=== PATIENT | female | born 1985 | race Caucasian/White ===

== ENCOUNTER → 2017-07-13 14:56 | Outpatient (REF) | payer OTHER, SELFPAY ==
[2017-07-13 17:47] LABS: Basophils # 0.1 K/mm3 (0-0.2); Basophils % 0.9 % (0.1-2.0); Eosinophils # 0.2 K/mm3 (0.0-0.4); Eosinophils % 1.6 % (0.1-12.0); Hematocrit 42.6 % (37.0-47.0); Hemoglobin 14.2 g/dL (12.2-16.2); Lymphocytes # 2.6 K/mm3 (0.7-4.5); Lymphocytes % 28.2 K/mm3 (10-50); Mean Corpuscular HGB Conc 33.3 g/dL (31.8-35.4); Mean Corpuscular Volume 90.1 fl (81-99); Mean Platelet Volume 10.5 fl (7.4-10.4); Monocytes # 0.4 K/mm3 (0.1-1.0); Monocytes % 4.7 % (1.7-9.3); Neutrophils % 64.6 % (37.0-80.0); Platelet Count 212 K/mm3 (142-424); Red Blood Count 4.73 M/mm3 (4.20-5.40); Red Cell Distribution Width 12.5 % (11.5-17.5); White Blood Count 9.3 K/mm3 (4.8-10.8)
[2017-07-13 18:31] LABS: HCG Qualitative, Serum Negative (Negative)
[2017-07-13 19:00] LABS: Alanine Aminotransferase 28 U/L (12-78); Albumin Level 4.1 gm/dL (3.4-5.0); Albumin/Globulin Ratio 1.3 (1.1-1.8); Alkaline Phosphatase 69 U/L (46-116); Anion Gap 14.9 mEq/L (5-15); Aspartate Amino Transferase 17 U/L (15-37); Bilirubin,Total 0.3 mg/dL (0.2-1.0); Blood Urea Nitrogen 10 mg/dL (7-18); Calcium 9.1 mg/dL (8.5-10.1); Carbon Dioxide 24 mmol/L (21.0-32.0); Chloride 107 mmol/L (98-107); Cholesterol 186 mg/dL (140-200); Creatinine,Serum 0.68 mg/dL (0.55-1.02); Estimated Glomerular Filt Rate 100 ml/min (>60); Free T4 (Free Thyroxine) 0.97 ng/dl (0.76-1.46); GFR (African American) 121 ML/MIN (>60); Globulin 3.1 gm/dl (1.3-3.2); Glucose 75 mg/dL (74-106); HDL Cholesterol 31 mg/dL (29-89); LDL Cholesterol 115 mg/dL (0-130); Potassium 3.9 mmoL/L (3.5-5.1); Sodium 142 mmol/L (136-145); Thyroid Stimulating Hormone 2.21 uIU/ml (0.358-3.740); Total Protein,Serum 7.2 gm/dL (6.4-8.2); Triglycerides 202 mg/dL (30-200); VLDL Cholesterol 40 mg/dL (0-40)
[2017-07-15 08:59] LABS: Vitamin D 25 Hydroxy 19.7 ng/mL (30.0-100.0)
== END ==
LOC: LAB 14:56
PROVIDERS: Visit Provider Emergency Medicine
DX: I10 Essential (primary) hypertension (principal); R53.83 Other fatigue
CPT/HCPCS: 80053; 80061; 82652; 84439; 84443; 84703; 85025

== ENCOUNTER → 2019-04-14 10:36 | Outpatient (CLI) | payer OTHER, SELFPAY ==
--- NOTE | 2019-04-14 10:40 | XR_ITS ---
PROCEDURE: XR ELBOW RT MIN 3V CLINICAL INDICATION: elbow pain COMPARISON: No exams were available for comparison FINDINGS: No fracture or dislocation. No lytic or blastic change. There is normal mineralization. The joint spaces are well-preserved. No significant degenerative/arthritic changes. No erosive changes evident. Other findings:None. IMPRESSION: Negative right elbow Dictated by: Mateo Bullard MD 04/14/2019 11:09 Electronically signed by Mateo Bullard MD in [place] 04/14/2019 11:09
== END ==
PROVIDERS: PCP Emergency Medicine; Visit Provider Nurse Practitioner Family
DX: M25.521 Pain in right elbow (principal)
CPT/HCPCS: 73080

== ENCOUNTER → 2020-05-08 08:49 | Outpatient (CLI) | payer BC, SELFPAY ==
[2020-05-08 09:04] LABS: Basophils # 0.1 K/mm3 (0-0.2); Basophils % 1.1 % (0.1-2.0); Eosinophils # 0.4 K/mm3 (0.0-0.4); Eosinophils % 3.2 % (0.1-12.0); Hematocrit 42.6 % (37.0-47.0); Hemoglobin 14.3 g/dL (12.2-16.2); Lymphocytes # 3.2 K/mm3 (0.7-4.5); Lymphocytes % 28.7 % (10-50); Mean Corpuscular HGB Conc 33.5 g/dL (31.8-35.4); Mean Corpuscular Hemoglobin 31.4 pg (27.0-31.2); Mean Corpuscular Volume 93.6 fl (81-99); Mean Platelet Volume 11.1 fl (7.4-10.4); Monocytes # 0.7 K/mm3 (0.1-1.0); Neutrophils # 6.8 K/mm3 (1.8-7.8); Platelet Count 279 K/mm3 (142-424); Red Blood Count 4.56 M/mm3 (4.20-5.40); Red Cell Distribution Width 13.2 % (11.5-17.5); White Blood Count 11.2 K/mm3 (4.8-10.8)
[2020-05-08 09:29] LABS: Alanine Aminotransferase 20 U/L (12-78); Albumin Level 4.7 g/dl (3.5-5.0); Albumin/Globulin Ratio 1.7 (1.1-1.8); Alkaline Phosphatase 68 U/L (38-126); Anion Gap 14.2 mEq/L (5-15); Aspartate Amino Transferase 26 U/L (14-36); Bilirubin,Total 0.2 mg/dl (0.2-1.3); Blood Urea Nitrogen 15 mg/dl (7-17); Calcium 9.9 mg/dl (8.4-10.2); Carbon Dioxide 23 mmol/L (22.0-30.0); Chloride 104 mmol/L (98-107); Chol/HDL Ratio 7.7 (1-3.5); Cholesterol 263 mg/dl (140-200); Estimated Glomerular Filt Rate 95 ml/min (>60); GFR (African American) 115 ML/MIN (>60); Globulin 2.8 g/dL (1.3-3.2); Glucose 76 mg/dl (74-100); HDL Cholesterol 34 mg/dl (40-60); Potassium 4.2 mmoL/L (3.5-5.1); Sodium 137 mmol/L (136-145); Total Protein,Serum 7.5 g/dl (6.3-8.2)
[2020-05-08 09:48] LABS: T4 (Thyroxine) 9.1 ug/dl (5.53-11.0)
[2020-05-08 10:01] LABS: Thyroid Stimulating Hormone 1.87 uIU/mL (0.465-4.68)
[2020-05-08 10:02] LABS: 25-OH Vitamin D, Total < 12.8 ng/mL (30-100)
[2020-05-08 10:22] LABS: Triglycerides 790 mg/dl (30-150)
== END ==
PROVIDERS: Visit Provider Nurse Practitioner Family
DX: Z00.00 Encounter for general adult medical examination without abnormal findings (principal); I10 Essential (primary) hypertension; E55.9 Vitamin D deficiency, unspecified; Z79.899 Other long term (current) drug therapy
CPT/HCPCS: 80053; 80061; 82306; 84436; 84443; 85025

== ENCOUNTER → 2021-10-14 15:41 | Outpatient (CLI) | payer OTHER, SELFPAY ==
[2021-10-14 17:19] LABS: HCG,Quantitative 4745 mIU/ml (0-5.42)
== END ==
PROVIDERS: PCP Nurse Practitioner Family; Visit Provider Nurse Practitioner Obstetrics & Gynecology
DX: N92.6 Irregular menstruation, unspecified (principal)
CPT/HCPCS: 36415; 84702

== ENCOUNTER → 2021-11-18 15:32 | Outpatient (CLI) | payer OTHER, SELFPAY ==
[2021-11-18 19:10] LABS: Basophils # 0.1 K/mm3 (0-0.2); Basophils % 0.9 % (0.1-2.0); Eosinophils # 0.2 K/mm3 (0.0-0.4); Eosinophils % 1.5 % (0.1-12.0); Hematocrit 36.5 % (37.0-47.0); Hemoglobin 12.2 g/dL (12.2-16.2); Lymphocytes # 3.2 K/mm3 (0.7-4.5); Lymphocytes % 22.9 % (10-50); Mean Corpuscular HGB Conc 33.5 g/dL (31.8-35.4); Mean Corpuscular Volume 95.5 fl (81-99); Monocytes # 0.7 K/mm3 (0.1-1.0); Monocytes % 5.3 % (1.7-9.3); Neutrophils # 9.7 K/mm3 (1.8-7.8); Neutrophils % 69.4 % (37.0-80.0); Platelet Count 258 K/mm3 (142-424); Red Blood Count 3.82 M/mm3 (4.20-5.40); Red Cell Distribution Width 13.1 % (11.5-17.5); White Blood Count 13.9 K/mm3 (4.8-10.8)
[2021-11-20 07:12] LABS: HIV Screen 4th Generation wRfx Non Reactive (Non Reactive)
[2021-11-20 08:19] LABS: Hepatitis B Surface Antigen Negative (Negative); Hepatitis C Antibody <0.1 s/co ratio (0.0-0.9)
[2021-11-20 11:20] LABS: Rapid Plasma Reagin Ab Titer Non Reactive (NonRea<1:1)
[2021-11-20 12:52] LABS: Rubella Antibodies, IgG 0.95 index (Immune >0.99)
== END ==
PROVIDERS: PCP Nurse Practitioner Family; Visit Provider Nurse Practitioner Obstetrics & Gynecology
DX: Z34.90 Encounter for supervision of normal pregnancy, unspecified, unspecified trimester (principal)
CPT/HCPCS: 36415; 85025; 86592; 86703; 86762; 86850; 87340; 87380; G0432

== ENCOUNTER → 2021-11-28 14:57 | Outpatient (CLI) | payer OTHER, SELFPAY ==
--- NOTE | 2021-11-28 14:57 | US_ITS ---
FINAL REPORT CLINICAL HISTORY: Confirmation. for dates FINDINGS: Sonographic images of the pelvis were obtained. A single, living intrauterine is noted. A yolk sac is present and measures 0.46 cm. [place] to rump length measures 49 mm which corresponds to 11 weeks 5 days gestation. Heartbeat is identified and measures 170 beats per minute. The right ovary is within normal limits. The left ovary is within normal limits. IMPRESSION: Single, living, intrauterine gestation with 11 weeks 5 days ultrasound age. Reviewed, Interpreted and Dictated by Estevan Rdz III, MD Transcribed by Laura Navarro Authenticated and [facility]
== END ==
PROVIDERS: PCP Nurse Practitioner Family; Visit Provider Nurse Practitioner Obstetrics & Gynecology
DX: Z34.90 Encounter for supervision of normal pregnancy, unspecified, unspecified trimester (principal)
CPT/HCPCS: 76801

== ENCOUNTER → 2022-02-04 13:26 | Outpatient (CLI) | payer OTHER, SELFPAY ==
--- NOTE | 2022-02-04 13:29 | US_ITS ---
FINAL REPORT CLINICAL HISTORY: 20 week anatomy scan FINDINGS: There is a single live intrauterine gestation. Presentation is variable but ended breech. The cervix is closed and measures 4 cm. Placenta is fundal. Cardiac activity is confirmed at 144 bpm. There is soft tissue prominence anteriorly that may represent an accessory lobe of the placenta or possibly a fibroid. The fetus is active. Three-vessel cord with satisfactory umbilical cord insertion. Four-chamber heart is noted. brain and ventricles are unremarkable. Chest and diaphragm are unremarkable. ABDOMEN: Both kidneys are unremarkable. Stomach is unremarkable. SPINE: No anomalies identified. Both arms and legs noted. AMNIOTIC FLUID: Appropriate amount. MEASUREMENTS: ULTRASOUND AGE: 21 weeks 2 days. GESTATION AGE: 21 weeks 3 days. ESTIMATED WEIGHT: 421 g GROWTH PERCENTILE: 43% BPD: 4.9 cm consistent with 21 weeks 0 days. OFD: 6.4 cm consistent with 21 weeks 2 days. HC: 18 cm consistent with 20 weeks 3 days. AC: 16.6 cm consistent with 21 weeks 5 days. FL: 3.6 cm consistent with 21 weeks 4 days. CEREBELLUM: 2.1 cm consistent with 21 weeks 2 days. HUMERUS: 3.4 cm consistent with 21 weeks 4 days. HC/AC: 1.08 CI: 77% FL/BPD: 73 % FL/AC: 22% IMPRESSION: Single living IUP with an ultrasound age of 21 weeks 2 days. Soft tissue prominence anteriorly may represent an accessory lobe of the placenta or possibly a fibroid. Reviewed, Interpreted and Dictated by Estevan Rdz III, MD Transcribed by Octavio Tinajero Authenticated and [facility]
== END ==
PROVIDERS: PCP Nurse Practitioner Family; Visit Provider Nurse Practitioner Obstetrics & Gynecology
DX: Z34.90 Encounter for supervision of normal pregnancy, unspecified, unspecified trimester (principal); Z3A.20 20 weeks gestation of pregnancy
CPT/HCPCS: 76811

== ENCOUNTER → 2022-03-13 08:34 | Outpatient (CLI) | payer OTHER, SELFPAY ==
[2022-03-13 09:13] LABS: Glucose,Fasting 87 mg/dl (74-100)
[2022-03-13 10:33] LABS: Glucose 1 Hour 68 mg/dL (74-100)
== END ==
PROVIDERS: PCP Nurse Practitioner Family; Visit Provider Nurse Practitioner Obstetrics & Gynecology
DX: Z34.90 Encounter for supervision of normal pregnancy, unspecified, unspecified trimester (principal)
CPT/HCPCS: 36415; 82951

== ENCOUNTER → 2022-04-08 14:11 | Outpatient (CLI) | payer OTHER, SELFPAY | PROVIDERS: PCP Nurse Practitioner Family; Visit Provider Nurse Practitioner Obstetrics & Gynecology | DX: Z34.90 Encounter for supervision of normal pregnancy, unspecified, unspecified trimester (principal) | CPT/HCPCS: J2790 ==

== ENCOUNTER 2022-04-24 16:09 | Emergency (ER) | payer OTHER, SELFPAY ==
[2022-04-24 16:45] VITALS: BP 135/81; PULSE 78; RESP 20; TEMP 36.8; O2SAT 99; BMI 39.0
--- NOTE | 2022-04-24 17:07 | EXP.UTC ---
Discharge Plan Disposition Patient Disposition: Home, Self-Care Condition: Good Prescriptions Prescriptions: New amoxicillin [amoxicillin] 500 mg tablet 500 mg PO TID 10 Days Qty: 30 0RF No Action ferrous sulfate 325 mg (65 mg iron) tablet 325 mg PO DAILY 30 Days Qty: 30 6RF labetalol 200 mg tablet 200 mg PO BID Classic 28 mg iron- 800 mcg tablet 1 tab PO DAILY Referrals Follow up/Referrals: Kavon Jacob APRN [Primary Care Provider] - See instructions Activity Restrictions/Add. Instructions Additional Instructions/Restrictions: Drink plenty of fluids. Take tylenol or ibuprofen for pain or fever. Take the medications as directed. Follow up with your regular doctor. GO TO THE ER FOR ANY WORSENING SYMPTOMS Clinical Impressions Clinical Impression: Otitis media, right Instructions Patient Instructions: Middle Ear Infection Discharge ED Provider: Jeronimo Santoyo [facility] General Stated complaint: right ear pain Mode of Arrival: Ambulatory Source of Information: Patient Limitations: No Limitations Time Seen by Provider: 04/24/22 17:07 Description of Symptoms (Recalled from Triage Doc. by RN): right ear closed, no hurting or pain HEENT Symptoms (Recalled from RN notes): Yes Resp Symptoms (Recalled from RN notes): No Skin Symptoms (Recalled from RN notes): No MS Symptoms (Recalled from RN notes): No Functional Status (Recalled from RN notes): n/a History of Present Illness Provider Complaint: She c/o right ear pain and decreased hearing for the past 2 days. She has had a runny nose, but she denies any other symptoms. Related Data Home Medications Medication Instructions Recorded Confirmed labetalol 200 mg tablet 200 mg PO BID High blood pressure 04/24/22 04/24/22 vits no.126-ferrous fum 1 tab PO DAILY . 04/24/22 04/24/22 28 mg iron-folic acid 800 mcg tablet (Classic ) Previous Rx's Medication Instructions Recorded ferrous sulfate 325 mg (65 mg 325 mg PO DAILY 30 days #30 tabs 01/21/22 iron) tablet amoxicillin 500 mg tablet 500 mg PO TID 10 days #30 tabs 04/24/22 Allergies Allergy/AdvReac Type Severity Reaction Status Date / Time No Known Allergies Allergy Verified 04/24/22 17:00 Worker's Comp Is this a Worker's Comp case?: No [facility] Disclaimer: The information contained in this section may have been updated after the patient was seen, as this information can be updated by other users. Medical History Chronic hypertension affecting Maternal obesity affecting , antepartum Smoker Vitamin D deficiency (~07/15/17) Family History Other Alcoholism Asthma Cancer Diabetes Heart attack Hyperlipidemia Hypertension Social History Smoking Status: Current every day smoker tobacco type: cigarettes second hand exposure: Yes alcohol intake: never substance use type: denies use current occupational status: employed Travel in the last 8 weeks: None ROS Obtained: Yes All systems reviewed & no additional complaints except as documented Constitutional Constitutional: Denies chills, Reports fever(s) and Reports poor appetite Eyes Eyes: Denies eye discharge ENT Ears, Nose, Mouth, and Throat: Denies ear discharge, Reports otalgia, Denies hearing loss, Denies sinus pain and Reports sore throat Cardiovascular Cardiovascular: Denies chest pain and Denies dyspnea Respiratory Respiratory: Denies chest congestion, Reports cough and Denies dyspnea Gastrointestinal Gastrointestingal: Denies abdominal pain, diarrhea, nausea or vomiting Musculoskeletal Musculoskeletal: Denies arthralgias Integumentary/Breasts Skin/Breast: Denies rash Physical Exam General General appearance: alert and in no apparent distress Head Head exam: atraumat
[2022-04-24 17:49] VITALS: BP 135/81; PULSE 78; RESP 20; TEMP 36.8; O2SAT 99
== END 2022-04-24 17:48 | disposition home or self-care (01) ==
PROVIDERS: Emergency Provider Nurse Practitioner Family; PCP Nurse Practitioner Family
DX: H66.91 Otitis media, unspecified, right ear (principal); F17.210 Nicotine dependence, cigarettes, uncomplicated
CPT/HCPCS: 99212; 99214; G0463

== ENCOUNTER → 2022-05-19 16:25 | Outpatient (CLI) | payer OTHER, SELFPAY ==
--- NOTE | 2022-05-19 16:26 | US_ITS ---
FINAL REPORT CLINICAL HISTORY: sga s/d ratios and growth performed as well FINDINGS: TRANSABDOMINAL ULTRASOUND There is a single live intrauterine gestation. Presentation is cephalic. The cervix is closed and measures 3 cm. Placenta is posterior grade 1. Cardiac activity is confirmed at 140 bpm. Fetus is active. LAURA: 20.5 cm MEASUREMENTS: ULTRASOUND AGE: 34 weeks 6 days. GESTATION AGE: 36 weeks 2 days. ESTIMATED WEIGHT: 2555 g GROWTH PERCENTILE: 19% LMP percentile HC/AC: 0.99 CI: 75% FL/BPD: 80% FL/AC: 21% S/D: 2.22 BPD: 8.4 cm corresponding with 34 weeks 0 days. OFD: 8.7 cm corresponding with 35 weeks 0 days. HC: 31.2 cm corresponding with 35 weeks 0 days. AC: 31.4 cm corresponding with 35 weeks 3 days. FL: 6.7 cm corresponding with 34 weeks 4 days. BREATHIN/2 MOVEMENT: 2/2 TONE: 2/2 FLUID VOLUME: 2/2 BPP SCORE: 8/8 IMPRESSION: Single living IUP with an ultrasound age of 34 weeks 6 days. BPP SCORE: 8/8 LAURA: 20.5 Reviewed, Interpreted and Dictated by Parker Greenberg MD Transcribed by Laura Navarro Authenticated and [facility]
== END ==
LOC: RAD 16:26
PROVIDERS: PCP Nurse Practitioner Family; Visit Provider Nurse Practitioner Obstetrics & Gynecology
DX: O36.5990 Maternal care for other known or suspected poor fetal growth, unspecified trimester, not applicable or unspecified (principal)
CPT/HCPCS: 76816; 76819; 76820; 86403

== ENCOUNTER → 2022-05-19 17:19 | Outpatient (CLI) | payer OTHER, SELFPAY | PROVIDERS: Visit Provider Nurse Practitioner Obstetrics & Gynecology | DX: Z34.90 Encounter for supervision of normal pregnancy, unspecified, unspecified trimester (principal) ==

== ENCOUNTER 2022-06-09 04:42 | Inpatient (IN) | payer OTHER, SELFPAY ==
[2022-06-09 04:46] VITALS: BMI 39.9
[2022-06-09 05:27] LABS: Coronavirus 19, PCR Not Detected (NotDetected); Influenza A, PCR Not Detected (NotDetected); Influenza B, PCR Not Detected (NotDetected)
[2022-06-09 05:29] LABS: Basophils # 0.1 K/mm3 (0-0.2); Basophils % 0.6 % (0.1-2.0); Eosinophils # 0.2 K/mm3 (0.0-0.4); Eosinophils % 1.6 % (0.1-12.0); Hematocrit 35.2 % (37.0-47.0); Hemoglobin 11.8 g/dL (12.2-16.2); Lymphocytes # 2.6 K/mm3 (0.7-4.5); Lymphocytes % 20.8 % (10-50); Mean Corpuscular HGB Conc 33.6 g/dL (31.8-35.4); Mean Corpuscular Hemoglobin 31.1 pg (27.0-31.2); Mean Corpuscular Volume 92.5 fl (81-99); Mean Platelet Volume 9.8 fl (7.4-10.4); Monocytes # 0.6 K/mm3 (0.1-1.0); Monocytes % 5.2 % (1.7-9.3); Neutrophils # 8.8 K/mm3 (1.8-7.8); Neutrophils % 71.8 % (37.0-80.0); Platelet Count 211 K/mm3 (142-424); Red Cell Distribution Width 13.7 % (11.5-17.5); White Blood Count 12.3 K/mm3 (4.8-10.8)
[2022-06-09 05:35] VITALS: BP 128/86; PULSE 81; RESP 18; TEMP 36.4; O2SAT 99; BMI 39.9
--- NOTE | 2022-06-09 06:59 | HMH.PHAINT1 ---
Pharmacy Intervention Comments: MEDICATION RECONCILIATION COMPLETED ON PATIENT USING EXTERNAL FILL HISTORY FROM PHARMACY. -JENI FOY, CLEMENTED
--- NOTE | 2022-06-09 08:21 | EXP.LABOR.NO ---
Labor Note Subjective: Date: 06/09/22 Time: 08:21 regular contraction Objective: NST:: Reactive Contractions:: every 2-3 minutes Cervical Dilation:: 2-3 Effacement:: 75% Station: -2 Membranes: artificially ruptured Comment:: I ruptured her membranes and there was clear fluid. Fetus: Monitoring?: Yes monitoring type:: External Assessment: Labor progressing?: Yes Cephalopelvic disproportion?: No Plan: Anesthesia for epidural?: Yes Continue to labor down?: Yes Plan for ?: No Continue to monitor?: Yes Start pushing?: No Comment:: I have ruptured her membranes and there is clear fluid. She is iqra well. Her cervix is reasonably thinned out and she is 2 to 3 cm. We will expect vaginal delivery since she has had a previous vaginal delivery.
--- NOTE | 2022-06-09 08:23 | EXP.HP ---
History of Present Illness *Admission Date: 06/09/22 *Reason for visit:: Term previous vaginal delivery *History of present illness: She is a 36-year-old 2 para 1 at 39 weeks gestational age. She has requested induction of labor at term. She has had a previous vaginal delivery. [facility] Disclaimer: The information contained in this section may have been updated after the patient was seen, as this information can be updated by other users. Medical History Chronic hypertension affecting Maternal obesity affecting , antepartum Smoker Vitamin D deficiency (~07/15/17) Family History Diabetes Alcoholism Hyperlipidemia Heart attack Cancer Hypertension Asthma Social History Smoking Status: Former smoker second hand exposure: Yes alcohol intake: never substance use type: denies use current occupational status: employed Travel in the last 8 weeks: None Review of Systems Review of Systems Review of systems:: pertinent systems reviewed and negative unless documented below Meds Home Medications and Allergies Home Medications Medication Instructions Recorded Confirmed Type labetalol 200 mg tablet 200 mg PO BID High blood pressure 04/24/22 06/09/22 History vits no.126-ferrous fum 1 tab PO DAILY Supplement 04/24/22 06/09/22 History 28 mg iron-folic acid 800 mcg tablet (Classic ) ferrous sulfate 325 mg (65 mg 325 mg PO DAILY Supplement 06/09/22 06/09/22 History iron) tablet New Prescriptions to Start Prescriptions: Allergies Allergy/AdvReac Type Severity Reaction Status Date / Time No Known Allergies Allergy Verified 06/08/22 15:56 Exam Data for Last 24 hours Vital signs and Labs for Last 24 Hours: Temp Pulse Resp BP Pulse Ox 97.6 F 81 18 128/86 99 06/09/22 05:35 06/09/22 05:35 06/09/22 05:35 06/09/22 05:35 06/09/22 05:35 Laboratory Results - last 24 hr 06/09/22 05:20: WBC 12.3 H, RBC 3.80 L, Hgb 11.8 L, Hct 35.2 L, MCV 92.5, MCH 31.1, MCHC 33.6, RDW 13.7, Plt Count 211, MPV 9.8, Neut % (Auto) 71.8, Lymph % (Auto) 20.8, [place] % (Auto) 5.2, Eos % (Auto) 1.6, Baso % (Auto) 0.6, Neut # (Auto) 8.8 H, Lymph # (Auto) 2.6, [place] # (Auto) 0.6, Eos # (Auto) 0.2, Baso # (Auto) 0.1 06/09/22 05:20: SARS-CoV-2 (PCR) Not detected, Influenza A Untype (PCR) Not detected, Influenza Type B (PCR) Not detected 06/09/22 05:20: Blood Type O Negative, Antibody Screen Negative I & O for Last 24 hours: Intake & Output 06/06/22 06/07/22 06/08/22 06/09/22 11:59 11:59 11:59 11:59 Weight 247 lb Constitutional Constitutional: no acute distress and obese *Routine HEENT Exam Head: Present normocephalic Eye: Present EOMI and PERRL ENT: Present mucous membranes moist *Routine Neck Exam Neck: Present supple; Absent lymphadenopathy *Routine Respiratory Exam Respiratory: Present CTA bilaterally *Routine Cardiovascular Exam Cardiovascular: Present RRR *Routine Abdominal Exam Abdominal: Present soft and normoactive bowel sounds; Absent tenderness *Routine Rectal Exam Rectal:: deferred *Routine Genitalia Exam Genitalia:: deferred *Routine Extremities Exam Extremities: Absent cyanosis, clubbing or edema *Routine Skin Exam Skin: Present warm; Absent rash *Routine Neurological Exam Neurological: Present alert and oriented X3 Assessment and Plan *Assessment and plan (1) Tobacco smoking affecting : Status: Acute Category: Medical Code(s): O99.330 - Smoking (tobacco) complicating , unspecified trimester (2) Chronic hypertension affecting : Status: Chronic Category: Medical Code(s): O10.919 - Unspecified pre-existing hypertension complicating , unspecified trimester (3) Maternal obesity affecting ,
--- NOTE | 2022-06-09 11:24 | EXP.LABOR.NO ---
Labor Note Subjective: Date: 06/09/22 Time: 11:24 regular contraction Objective: NST:: Reactive Contractions:: every 2-3 minutes Cervical Dilation:: 2-3 Effacement:: 50% Station: -3 Membranes: artificially ruptured Fetus: Monitoring?: Yes monitoring type:: External Assessment: Labor progressing?: No Cephalopelvic disproportion?: No Plan: Anesthesia for epidural?: Yes Continue to labor down?: Yes Plan for ?: No Continue to monitor?: Yes Start pushing?: No Comment:: She really has not progressed much and her blood pressure is slightly elevated. I recommended that she has an epidural. I suspect this may help with her blood pressure. It should also relax her pelvis to allow the baby's head to come down easier. We will make sure that we drain her bladder as well.
--- NOTE | 2022-06-09 11:53 | EXP.ANES.CKL ---
[facility] Disclaimer: The information contained in this section may have been updated after the patient was seen, as this information can be updated by other users. Medical History Chronic hypertension affecting Maternal obesity affecting , antepartum Smoker Vitamin D deficiency (~07/15/17) Family History Diabetes Alcoholism Hyperlipidemia Heart attack Cancer Hypertension Asthma Social History Smoking Status: Former smoker second hand exposure: Yes alcohol intake: never substance use type: denies use current occupational status: employed Travel in the last 8 weeks: None [facility] Anesthesia Checklist Patient Identification Patient Identification: Verbal (Name & ) Structural Data Admitted From: Inpatient Planned Operative Procedure/s: labor epidural Consent for Planned Operative Procedure(s) Verified: Yes Airway Assessment C-Spine Mobility Assessed: Yes TMJ Mobility Assessed: Yes Dentition: Good Dentition Neurological Assessment Level of Consciousness: Awake, Alert and Appropriate Anesthesia Plan Anesthesia Risk discussed: Yes Anesthesia Plan: Verified ASA Class: II Anesthesia Type: Epidural
[2022-06-09 12:09] LABS: Microscopic, Urine URINE MICROSCOPIC (MICROSCOPIC)
[2022-06-09 12:11] LABS: Appearance,Urine CLEAR (Clear); Bilirubin,Urine Negative (Negative); Blood, Urine 2+ (Negative); Color,Urine YELLOW (Yellow); Glucose,Urine (UA) Negative (Negative); Ketones,Urine Negative (Negative); Leukocyte Esterase,Urine Negative (Negative); Nitrate,Urine Negative (Negative); PH,Urine 6.5 (5.0-8.5); Protein,Urine Negative (Negative); Specific Gravity, Urine 1.015 (1.005-1.030); Urobilinogen,Urine 0.2 EU/dl (0.2)
[2022-06-09 12:23] LABS: Barbiturates Screen,Urine Negative ng/ml (<200)
[2022-06-09 12:24] LABS: Amphetamine/Metha Screen,Urine Negative ng/ml (<1000); Benzodiazepines Screen,Urine Negative ng/ml (<200)
[2022-06-09 12:25] LABS: Cannabinoid Screen,Urine Negative ng/ml (<50); Cocaine Screen,Urine Negative ng/ml (<300)
[2022-06-09 12:26] LABS: Bacteria,Urine Trace /lpf; Methadone Screen,Urine Negative ng/ml (<300); Squamous Epithelial Cell,Urine Occasional #/hpf (0-5)
[2022-06-09 12:27] LABS: Opiate Screen,Urine Negative ng/ml (<300); Phencyclidine Screen,Urine Negative ng/ml (<25)
--- NOTE | 2022-06-09 15:41 | EXP.LABOR.NO ---
Labor Note Subjective: Date: 06/09/22 Time: 13:35 regular contraction Objective: NST:: Reactive Contractions:: every 2-3 minutes Cervical Dilation:: 4 Effacement:: 25% Station: -3 Membranes: artificially ruptured Fetus: Monitoring?: Yes monitoring type:: Internal and External Comment:: I inserted an IUPC Assessment: Labor progressing?: Yes Cephalopelvic disproportion?: No Plan: Anesthesia for epidural?: Yes Continue to labor down?: Yes Plan for ?: No Continue to monitor?: Yes Start pushing?: No
--- NOTE | 2022-06-09 15:42 | EXP.LABOR.NO ---
Labor Note Subjective: Date: 06/09/22 Time: 15:42 regular contraction Objective: NST:: Reactive Contractions:: every 2-3 minutes Cervical Dilation:: 4 Effacement:: 50% Station: -3 Membranes: artificially ruptured Fetus: Monitoring?: Yes monitoring type:: Internal and External Assessment: Labor progressing?: No Cephalopelvic disproportion?: No Plan: Anesthesia for epidural?: Yes Continue to labor down?: Yes Plan for ?: No Continue to monitor?: Yes Start pushing?: No Comment:: She really has not progressed much in the last couple of hours but she is having regular contractions. She has had a previous vaginal delivery. We will see how she does over the next few hours. If she does not change her cervix then I suspect she will need a section. There is no evidence of distress.
--- NOTE | 2022-06-09 16:43 | EXP.LABOR.NO ---
Labor Note Subjective: Date: 06/09/22 Time: 16:43 regular contraction Objective: NST:: Reactive Contractions:: every 2-3 minutes Cervical Dilation:: 4-5 Effacement:: 75% Station: -2 Membranes: artificially ruptured Fetus: Monitoring?: Yes monitoring type:: Internal and External Assessment: Labor progressing?: Yes Cephalopelvic disproportion?: No Plan: Anesthesia for epidural?: Yes Continue to labor down?: Yes Plan for ?: No Continue to monitor?: Yes Start pushing?: No Comment:: She seems to be progressing. The cervix is much softer and stretchy. She is a good 4 to 5 cm with some molding of the head. Her care will be taken over by Dr. Carrillo since I am going to be leaving town for the rest of the evening. I am confident that she will have a vaginal delivery.
[2022-06-09 19:15] VITALS: BP 128/67; PULSE 57; RESP 18; TEMP 36.4; O2SAT 99
--- NOTE | 2022-06-09 21:04 | EXP.DN ---
Delivery Note Delivery Date:: 06/09/22 Delivery Time:: 19:53 Anesthesia Type: Epidural Was labor medically induced?: Yes Induction method: per pitocin protocol Infant delivered prior to 39 weeks?: Yes Gender: Female at 1 minute: 8 at 5 minutes: 9 Delivery Procedure:: Spontaneous vaginal delivery of liveborn female infant over intact perineum. Delivery uncomplicated Nuchal cord x 1 reduced on perineum No shoulder dystocia with delivery Infant placed in NOY immediately after delivery, with standard nursing assessment performed Infant Apgars: 8 & 9 Placenta spontaneously expressed and examined; noted to be complete/intact. Vulva, vagina, and cervix inspected; no lacerations noted EBL: 300 cc All sponge/needle/instrument counts correct at conclusion of procedure Placental Delivery Description: Spontaneous
[2022-06-09 22:19] VITALS: BP 149/71; PULSE 79
[2022-06-10 06:54] LABS: Hematocrit 32.1 % (37.0-47.0); Hemoglobin 11.1 g/dL (12.2-16.2)
--- NOTE | 2022-06-10 08:56 | P.PN_ITS ---
Subjective *Date: 06/10/22 *Time: 08:56 Interval history: She is doing very well 1 day from a vaginal delivery. She denies any pain. She is bottlefeeding. Her lochia is normal. Medical Exam Vital signs and Labs for Last 24 Hours: Vital Signs Temp Pulse Resp BP Pulse Ox 06/09/22 22:19 79 149/71 H 06/09/22 19:15 97.5 F L 57 L 18 128/67 99 Laboratory Results - last 24 hr 06/09/22 12:00: Urine Color Yellow, Urine Appearance Clear, Urine pH 6.5, Ur Specific [place] 1.015, Urine Protein Negative, Urine Glucose (UA) Negative, U rine Ketones Negative, Urine Blood 2+, Urine Nitrate Negative, Urine Bilirubin Negative, Urine Urobilinogen 0.2, Ur Leukocyte Esterase Negative, Urine RBC 5- 10, Urine WBC 3-5, Ur Squamous Epith Cells Occasional, Urine Bacteria Trace 06/09/22 12:00: Urine Opiates Screen Negative, Urine Methadone Screen Negative, Ur Barbituates Screen Negative, Ur Phencyclidine Scrn Negative, Ur Amphetamines Screen Negative, U Benzodiazepines Scrn Negative, Urine Cocaine Screen Negative, U Marijuana (THC) Screen Negative 06/10/22 06:30: Hgb 11.1 L, Hct 32.1 L I & O for Labs for Last 24 Hours: Intake & Output 06/07/22 06/08/22 06/09/22 06/10/22 11:59 11:59 11:59 11:59 Weight 247 lb Head: Present atraumatic Neck: Present normal inspection Respiratory: Present normal respiratory effort; Absent accessory muscle use Assessment and Plan *Assessment and plan (1) Advanced maternal age affecting , antepartum: Status: Acute Category: Medical (2) Tobacco smoking affecting : Status: Acute Category: Medical Code(s): O99.330 - Smoking (tobacco) complicating , unspecified trimester (3) Normal delivery: Status: Acute Category: Medical Code(s): O80 - Encounter for full-term uncomplicated delivery (4) Chronic hypertension affecting : Status: Chronic Category: Medical Code(s): O10.919 - Unspecified pre-existing hypertension complicating , unspecified trimester (5) Maternal obesity affecting , antepartum: Status: Chronic Category: Medical Code(s): O99.210 - Obesity complicating , unspecified trimester Plan She continues to do very well. We will plan to send her home tomorrow.
[2022-06-10 09:00] VITALS: BP 135/64; PULSE 75; RESP 18; TEMP 36.6
[2022-06-10 13:40] VITALS: BP 131/66; PULSE 79; RESP 18; TEMP 36.8
[2022-06-11 04:15] VITALS: BP 143/73; PULSE 72; RESP 17; TEMP 36.5; O2SAT 98
--- NOTE | 2022-06-11 09:03 | EXP.DC.SUM ---
General Admission date:: 06/09/22 Discharge date: 06/11/22 HPI HPI HPI: She is a 36-year-old 2 para 1 at 39 weeks gestational age. She has requested induction of labor at term. She has had a previous vaginal delivery. She is known to have chronic hypertension. She is advanced maternal age. She has Rh- blood. She is obese. Hospital Course Hospital Course Hospital Course: She was started on IV oxytocin and had her membranes ruptured. She progressed to full dilation and delivered spontaneously a liveborn female child at 7:53 PM in the evening of June 09, 2022. The baby weighed 6 pounds 6 ounces and had Apgars of 8 at 1 minute and 9 at 5 minutes. She has done well and has remained afebrile throughout hospitalization. She is eating and drinking and ambulating. She is bottlefeeding. She has O Rh- blood and has received RhoGAM. She is rubella nonimmune and will receive MMR. She will be discharged home today to follow-up with me in approximately 2 weeks time. She will continue with her vitamins and iron. She was given the usual instructions with respect to limiting her activity, driving and sexual activity. She would like a bilateral tubal ligation and we will make arrangements for this in about 6 weeks. Exam Data for Last 24 hours Vital signs and Labs for Last 24 Hours: Temp Pulse Resp BP Pulse Ox 97.7 F 72 17 143/73 H 98 06/11/22 04:15 06/11/22 04:15 06/11/22 04:15 06/11/22 04:15 06/11/22 04:15 Laboratory Results - last 24 hr 06/10/22 06:30: Screen Negative, Baby's Rh Status Positive, Rhogam Infusion Rhogam release I & O for Last 24 hours: Intake & Output 06/08/22 06/09/22 06/10/22 06/11/22 11:59 11:59 11:59 11:59 Weight 247 lb Constitutional Constitutional: no acute distress *Routine HEENT Exam Head: Present normocephalic *Routine Neck Exam Neck: Present supple *Routine Respiratory Exam Respiratory: Present normal respiratory effort; Absent accessory muscle use Results Data Completed and Pending Labs on day of discharge: Labs from last 24 hours 06/10/22 06:30 Screen Negative Baby's Rh Status Positive Rhogam Infusion Rhogam release DS: Diagnosis Discharge Diagnosis (1) Advanced maternal age affecting , antepartum: Status: Acute (2) Tobacco smoking affecting : Status: Acute (3) Normal delivery: Status: Acute (4) Chronic hypertension affecting : Status: Chronic (5) Maternal obesity affecting , antepartum: Status: Chronic Meds Home Medications and Allergies Home Medications Medication Instructions Recorded Confirmed Type labetalol 200 mg tablet 200 mg PO BID High blood pressure 04/24/22 06/09/22 History vits no.126-ferrous fum 1 tab PO DAILY Supplement 04/24/22 06/09/22 History 28 mg iron-folic acid 800 mcg tablet (Classic ) ferrous sulfate 325 mg (65 mg 325 mg PO DAILY Supplement 06/09/22 06/09/22 History iron) tablet New Prescriptions to Start Prescriptions: Allergies Allergy/AdvReac Type Severity Reaction Status Date / Time No Known Allergies Allergy Verified 06/08/22 15:56 Discharge Plan Disposition Patient Disposition: Home, Self-Care Follow up Plan Prescriptions/Medication Reconciliation: Continued labetalol 200 mg tablet 200 mg PO BID Classic 28 mg iron- 800 mcg tablet 1 tab PO DAILY ferrous sulfate 325 mg (65 mg iron) tablet 325 mg PO DAILY Problem Reconciliation Problems Reviewed?: Yes Patient Discharge Instructions ACTIVITY: No heavy lifting DIET: continue same diet Additional Instructions: Drink plenty of fluids. Nothing in the vagina for 6 weeks. No strenuous activity or heavy lifting until released by your doctor. No tub baths. Patient Instructions: Depression, Hemorrhage, DI for Labor and Delivery, Vag
== END 2022-06-11 13:55 | disposition home or self-care (01) | DRG 806 ==
PROVIDERS: Obstetrics & Gynecology; Admitting Provider Nurse Practitioner Obstetrics & Gynecology; PCP Nurse Practitioner Family; Visit Provider Nurse Practitioner Obstetrics & Gynecology
DX: O69.81X0 Labor and delivery complicated by cord around neck, without compression, not applicable or unspecified (principal); O10.02 Pre-existing essential hypertension complicating childbirth; Z37.0 Single live birth; Z23 Encounter for immunization; Z3A.39 39 weeks gestation of pregnancy; F17.210 Nicotine dependence, cigarettes, uncomplicated; O99.334 Smoking (tobacco) complicating childbirth
CPT/HCPCS: 59409; 36415; 59025; 80305; 81001; 85014; 85018; 85025; 85461; 86850; C1758; C9803; J2790; U0003; U0005

== ENCOUNTER 2022-08-12 07:02 | Day surgery (SDC) | payer OTHER, SELFPAY ==
[2022-08-12] VITALS (9 sets, daily range): BP systolic 125–145; BP diastolic 75–91; PULSE 57–78; RESP 12–18; TEMP 36.1–36.6; O2SAT 92–98; BMI 35.5
[2022-08-12 07:36] LABS: Basophils # 0.1 K/mm3 (0-0.2); Basophils % 1.6 % (0.1-2.0); Eosinophils # 0.5 K/mm3 (0.0-0.4); Eosinophils % 6.5 % (0.1-12.0); Hematocrit 42.3 % (37.0-47.0); Hemoglobin 13.9 g/dL (12.2-16.2); Lymphocytes # 2.5 K/mm3 (0.7-4.5); Lymphocytes % 34.6 % (10-50); Mean Corpuscular HGB Conc 32.9 g/dL (31.8-35.4); Mean Corpuscular Hemoglobin 28.7 pg (27.0-31.2); Mean Corpuscular Volume 87.1 fl (81-99); Mean Platelet Volume 9.7 fl (7.4-10.4); Monocytes # 0.5 K/mm3 (0.1-1.0); Monocytes % 6.9 % (1.7-9.3); Neutrophils # 3.7 K/mm3 (1.8-7.8); Neutrophils % 50.4 % (37.0-80.0); Platelet Count 244 K/mm3 (142-424); Red Blood Count 4.85 M/mm3 (4.20-5.40); Red Cell Distribution Width 12.9 % (11.5-17.5); White Blood Count 7.4 K/mm3 (4.8-10.8)
[2022-08-12 07:37] LABS: Urine Pregnancy, HCG Qual. Negative (Negative)
[2022-08-12 07:50] LABS: Chloride 104 mmol/L (98-107); Sodium 138 mmol/L (136-145)
[2022-08-12 07:53] LABS: Alanine Aminotransferase 35 U/L (12-78); Albumin Level 4.5 g/dl (3.5-5.0); Albumin/Globulin Ratio 1.7 (1.1-1.8); Alkaline Phosphatase 75 U/L (38-126); Aspartate Amino Transferase 32 U/L (14-36); Bilirubin,Total 0.2 mg/dl (0.2-1.3); Blood Urea Nitrogen 15 mg/dl (7-17); Carbon Dioxide 23 mmol/L (22.0-30.0); Creatinine Clearance Estimated 173 mL/min (50-200); Estimated Glomerular Filt Rate 94 ml/min (>60); GFR (African American) 114 ML/MIN (>60); Globulin 2.7 g/dL (1.3-3.2); Glucose 99 mg/dl (74-100); Total Protein,Serum 7.2 g/dl (6.3-8.2)
--- NOTE | 2022-08-12 07:54 | P.PN_ITS ---
[facility] Disclaimer: The information contained in this section may have been updated after the patient was seen, as this information can be updated by other users. Medical History Hypertension Vitamin D deficiency (~07/15/17) Surgical History No significant past surgical history Family History Other Alcoholism Asthma Cancer Diabetes Heart attack Hyperlipidemia Hypertension Social History Smoking Status: Current every day smoker tobacco type: cigarettes second hand exposure: Yes alcohol intake: never substance use type: denies use current occupational status: employed Travel in the last 8 weeks: None [facility] Anesthesia Checklist Patient Identification Patient Identification: Arm Band and Verbal (Name & ) Structural Data Admitted From: Home Planned Operative Procedure/s: Lap. salpingectomy Consent for Planned Operative Procedure(s) Verified: Yes NPO Status Verified Time NPO: 00:00 Chart Verification Results Verified: HCG Additional verifications Anesthesia Reactions: No Hx Blood Transfusions: No Blood Transfusion Reaction: No Airway Assessment C-Spine Mobility Assessed: Yes TMJ Mobility Assessed: Yes Dentition: Good Dentition Neurological Assessment Level of Consciousness: Awake Hx Seizures: No Numbness or tingling in extremities: No Anesthesia Plan Anesthesia Risk discussed: Yes Anesthesia Plan: Verified ASA Class: II Anesthesia Type: General
--- NOTE | 2022-08-12 09:46 | P.PN_ITS ---
[facility] Disclaimer: The information contained in this section may have been updated after the patient was seen, as this information can be updated by other users. Medical History Hypertension Vitamin D deficiency (~07/15/17) Surgical History No significant past surgical history Family History Other Alcoholism Asthma Cancer Diabetes Heart attack Hyperlipidemia Hypertension Social History Smoking Status: Current every day smoker tobacco type: cigarettes second hand exposure: Yes alcohol intake: never substance use type: denies use current occupational status: employed Travel in the last 8 weeks: None [facility] Anesthesia Checklist Patient Identification Patient Identification: Verbal (Name & ) Structural Data Admitted From: Home Planned Operative Procedure/s: lap salpingectomy Consent for Planned Operative Procedure(s) Verified: Yes Additional verifications Anesthesia Reactions: No Hx Blood Transfusions: No Blood Transfusion Reaction: No Airway Assessment C-Spine Mobility Assessed: Yes TMJ Mobility Assessed: Yes Dentition: Good Dentition Neurological Assessment Level of Consciousness: Awake, Alert and Appropriate Anesthesia Plan Anesthesia Risk discussed: Yes Anesthesia Plan: Verified ASA Class: II Anesthesia Type: General
--- NOTE | 2022-08-12 10:11 | P.PNANES_ITS ---
[facility] Anesthesia Record Part I Anesthesia Record I Intake, IV Amount: 1,200 Estimated blood loss (mL): 25 Urine output (mL): 0 Blood Pressure: 125/83 SaO2: 92 Pulse Rate: 71 Respiratory Rate: 12 Temperature: 97.2 F Patient is:: Awake and Stable Stable to PACU at:: 10:13
--- NOTE | 2022-08-12 10:45 | P.OP_ITS ---
Date of procedure: 08/12/22 Pre-op Diagnosis:: Desire for sterilization Post-op Diagnosis:: Desire for sterilization Procedure performed:: Laparoscopic bilateral salpingectomy Surgeon:: Kosta Raya MD [employer] UNDERWRITER:: Oracio Pace Anesthesia: GETA Estimated blood loss (mL): 25 Clinical Note:: She is a 36-year-old lady who expressed desire for sterilization. The risks and benefits as well as the irreversibility of bilateral salpingectomy were discussed with the patient prior to surgery. Operative findings:: She had an anteverted bulky uterus. The ovaries and tubes appeared normal. The pelvis appeared normal. The upper abdomen appeared normal. Operative note:: She was taken to the operating room where general anesthesia was found be adequate. She was prepped and draped in normal sterile fashion in the semilithotomy position. A weighted speculum was placed in the vagina and the anterior lip of the cervix was grasped with a tenaculum. I then inserted a Angelina uterine manipulator into the cervical os. The balloon was then insufflated. I changed gloves and injected 10 cc of 0.5% ropivacaine around her umbilicus and made a small incision within the umbilicus. I inserted a Veress needle into the abdominal cavity. The peritoneal cavity was then insufflated with carbon dioxide gas to a pressure of 20 mmHg. I then inserted a 5 millimeter trocar under direct vision. I injected through and through the pubic hairline, made a small incision here and inserted an 8 mm trocar under direct vision. I identified the inferior epigastric artery on the left side, went lateral to these and injected through and through. I then placed a 5 mm trocar here under direct vision. The pelvis and upper abdomen were then inspected and the findings were as previously dictated. I grasped the right tube at the cornua and using harmonic scalpel on coagulation mode I cut through the tube. I then grasped the distal tube and using harmonic scalpel cut along the mesosalpinx. The tube was removed through 8 mm trocar site. This was similarly performed on the patient's left side. I then injected 30 cc of 0.5% ropivacaine into the pelvis. After assuring hemostasis the gas was let out of the abdomen and hemostasis was once again assured. The abdomen was then reinsufflated. The secondary trochars were removed under direct vision. The gas was let out her abdomen. The primary trocar was then removed. The 8 mm trocar site was closed deeply with 2-0 Vicryl suture followed by subcuticular 4-0 Monocryl suture. The 5 mm trocar sites were closed with subcuticular 4-0 Monocryl. Sterile dressings were applied. The patient tolerated the procedure well and was taken to the recovery room in excellent condition. All sponge instrument and needle counts were correct. The estimated blood loss was less than 25 cc. Condition: stable Disposition: PACU Specimens:: Bilateral fallopian tubes Complications:: None
[2022-08-17 07:57] VITALS: BP 140/88; PULSE 67; TEMP 36.6
--- NOTE | 2022-08-17 07:57 | EXP.ANES.II ---
[facility] Anesthesia Record Part II Anesthesia Record Part II Discharge Time: 10:43 Destination: Surgical Day Care (OP Surgery) PACU nurse assessment reviewed?: Yes Patient Condition:: Good Anesthesia Complications:: None Swallowing reflex intact?: Yes Cyanosis?: No Blood Pressure: 140/88 Pulse Rate: 67 Temperature: 98 F Mental Status: Alert & Oriented Pain level:: 0 Nausea and/or vomitting:: None Intake, IV Amount: 0
== END 2022-08-12 11:14 | disposition home or self-care (01) ==
PROVIDERS: PCP Nurse Practitioner Family; Visit Provider Nurse Practitioner Obstetrics & Gynecology
PROC: (CPT 58661; principal; 2022-08-12 08:45)
DX: Z30.2 Encounter for sterilization (principal)
CPT/HCPCS: 58661; 80053; 81025; 85025; 96374; J2405; J2710

== ENCOUNTER 2022-08-23 09:00 | Emergency (ER) | payer OTHER, SELFPAY ==
[2022-08-23 09:10] VITALS: BP 145/79; PULSE 91; RESP 19; TEMP 37.1; O2SAT 99; BMI 36.6
--- NOTE | 2022-08-23 09:26 | EXP.UTC ---
Discharge Plan Disposition Patient Disposition: Home, Self-Care Condition: Good Prescriptions Prescriptions: New amoxicillin 875 mg tablet 875 mg PO BID Qty: 20 0RF No Action lisinopril-hydrochlorothiazide 10-12.5 mg tablet 1 tab PO DAILY Referrals Follow up/Referrals: Kavon Jacob APRN [Primary Care Provider] - See instructions Activity Restrictions/Add. Instructions Additional Instructions/Restrictions: *Monitor Temp, Over the counter Motrin or Tylenol as directed/as needed Tylenol every 4 hours and Motrin every 6 hours (as long as your family doctor has told you that you can take it) for fever or pain. and straight to ER if unable to lower temp less than 101.0 after medication given *Warm salt water gargles may help to soothe the throat *Throat Lozenges? *Warm fluids like tea with honey may help to soothe the throat? *Sleep elevated *Humidifier/Vaporizer Your throat swab was sent for culture. Those results are typically sent to your primary care. Be sure to follow up in 2-3 days with your family doctor/primary care physician if no improvement so they can review those result and treat if necessary. If you don?t have a primary care doctor, I recommend you get one but in the mean time, you will have to return to a walk in clinic Follow up IMMEDIATELY for new or worsening symptoms or no Noticeable improvement over the next 48-72 hours. 911 for difficulty breathing or swallowing Clinical Impressions Clinical Impression: Pharyngitis Qualifiers: Pharyngitis/tonsillitis etiology: unspecified etiology Qualified Code(s): J02.9 - Acute pharyngitis, unspecified Instructions Patient Instructions: Sore Throat Discharge ED Provider: April Amezcua [facility] General Stated complaint: LT side throat pain Mode of Arrival: Ambulatory Source of Information: Patient Limitations: No Limitations Time Seen by Provider: 08/23/22 09:26 Description of Symptoms (Recalled from Triage Doc. by RN): PATIENT C/O SORE THROAT SINCE YESTERDAY HEENT Symptoms (Recalled from RN notes): Yes Resp Symptoms (Recalled from RN notes): No Skin Symptoms (Recalled from RN notes): No MS Symptoms (Recalled from RN notes): No Functional Status (Recalled from RN notes): WNL History of Present Illness Provider Complaint: Patient states that she has been having sore throat since yesterday States that it is worse on the left side of her throat and hurts when she swallows States that it feels swollen and irritated Related Data Home Medications Medication Instructions Recorded Confirmed lisinopril 10 1 tab PO DAILY Hypertension 07/22/22 08/23/22 mg-hydrochlorothiazide 12.5 mg tablet Previous Rx's Medication Instructions Recorded amoxicillin 875 mg tablet 875 mg PO BID #20 tabs 08/23/22 Allergies Allergy/AdvReac Type Severity Reaction Status Date / Time No Known Allergies Allergy Verified 08/12/22 07:34 Worker's Comp Is this a Worker's Comp case?: No [facility] Disclaimer: The information contained in this section may have been updated after the patient was seen, as this information can be updated by other users. Medical History Hypertension Vitamin D deficiency (~07/15/17) Surgical History No significant past surgical history Family History Other Alcoholism Asthma Cancer Diabetes Heart attack Hyperlipidemia Hypertension Social History Smoking Status: Current every day smoker tobacco type: cigarettes second hand exposure: Yes alcohol intake: never substance use type: denies use current occupational status: employed Travel in the last 8 weeks: None ROS Obtained: Yes All systems reviewed & no additional complaints except as
[2022-08-23 09:29] LABS: UTC Strep Screen (Rapid) Negative (Negative)
[2022-08-23 09:30] VITALS: BP 145/79; PULSE 91; RESP 19; TEMP 37.1; O2SAT 99
== END 2022-08-23 09:36 | disposition home or self-care (01) ==
PROVIDERS: Emergency Provider Nurse Practitioner; PCP Nurse Practitioner Family
DX: J02.9 Acute pharyngitis, unspecified (principal); F17.210 Nicotine dependence, cigarettes, uncomplicated; I10 Essential (primary) hypertension
CPT/HCPCS: 87880; 99212; 99214; G0463